=== PATIENT | male | born 1955 | race Caucasian/White ===

== ENCOUNTER 2021-04-25 14:51 | Outpatient (CLI) | payer BC ==
[2021-04-25 17:25] LABS: Hemoglobin 14.3 g/dL (13.5-17.5); Mean Corpuscular HGB CONC 32.5 g/dL (32.0-36.0); Mean Corpuscular Hemoglobin 29.7 pg (27.0-33.0); Mean Corpuscular Volume 91.5 fl (81.2-95.1); Mean Platelet Volume 9.5 fl (7.4-10.4); Platelet Count 265 10x3/uL (150-450); RBC Distribution Width 12.2 % (11.5-14.5); Red Blood Cell (RBC) Count 4.81 10x6/uL (4.32-5.72); White Blood Cell (WBC) Count 6.3 10x3/uL (3.5-10.5)
[2021-04-25 17:33] LABS: Anion Gap 13 mmol/L (10-20); BUN (Urea Nitrogen) 21 mg/dL (8.4-25.7); Calc. Creatinine Clearance 0 mL/min (70-130); Calcium 9.2 mg/dL (7.8-10.44); Carbon Dioxide 29 mmol/L (23-31); Chloride 102 mmol/L (98-107); Glucose 136 mg/dL (80-115); Potassium 3.8 mmol/L (3.5-5.1); Sodium 140 mmol/L (136-145)
[2021-04-26 12:12] LABS: SARS-CoV-2 PCR by NAA Not Detected (NotDetected)
== END 2021-04-25 14:52 | disposition home or self-care (01) ==
LOC: CSHLAB 14:51
PROVIDERS: ATTEND Otolaryngology Otolaryngic Allergy
DX: Z01.818 Encounter for other preprocedural examination (principal); Z20.822 Contact with and (suspected) exposure to COVID-19; D37.02 Neoplasm of uncertain behavior of tongue
CPT/HCPCS: 80048; 85027; 93005; 93010; U0003; U0005

== ENCOUNTER 2021-04-30 06:22 | Day surgery (SDC) | payer BC ==
[2021-04-26 12:18] VITALS: BMI 22.7
[2021-04-30] MEDS ORDERED: Lidocaine 1% MPF 2 ML VIAL ONE (08:12)
[2021-04-30] MEDS ORDERED: SUGAMMADEX SODIUM 200 MG/2 ML VIAL ONE (09:46)
[2021-04-30] MEDS ORDERED: EPINEPHrine 1 MG/ML AMP ONE (09:48)
[2021-04-30] MEDS ORDERED: Lidocaine 1% PF 5 ML VIAL ONE (09:53)
[2021-04-30] MEDS ORDERED: Dexamethasone 20 MG/5 ML VIAL ONE (09:53)
[2021-04-30] MEDS ORDERED: Rocuronium Bromide 10 MG/ML (10ML VIAL) ONE (09:53)
[2021-04-30] MEDS ORDERED: Midazolam HCl 2 mg/2 ml Vial ONE (09:53)
[2021-04-30] MEDS ORDERED: PROPOFOL 20 ML ONE (09:53)
[2021-04-30] MEDS ORDERED: Ondansetron PF 4 MG/2 ML Vial ONE (09:53)
[2021-04-30] MEDS ORDERED: Fentanyl 100 MCG/2 ML VIAL ONE ×2 (09:53→10:51)
[2021-04-30] MEDS ORDERED: CEFAZOLIN 1 GM VIAL ONE (09:55)
== END 2021-04-30 12:05 | disposition home or self-care (01) ==
LOC: CSHSDC 06:22
PROVIDERS: ATTEND Otolaryngology Otolaryngic Allergy
PROC: 0JJS3ZZ Inspection of Head and Neck Subcutaneous Tissue and Fascia, Percutaneous Approach (ICD-10-PCS; principal; 2021-04-30)
PROC: 0CBM8ZX Excision of Pharynx, Via Natural or Artificial Opening Endoscopic, Diagnostic (ICD-10-PCS; principal; 2021-04-30)
DX: C01 Malignant neoplasm of base of tongue (principal); R59.0 Localized enlarged lymph nodes; G89.29 Other chronic pain; M54.50 Low back pain, unspecified; G43.909 Migraine, unspecified, not intractable, without status migrainosus; Z79.899 Other long term (current) drug therapy; Z91.018 Allergy to other foods; Z87.891 Personal history of nicotine dependence
CPT/HCPCS: 88173; 88305; 88331; 88341; 88342; J0171; J0690; J1100; J2250; J2405; J2704; J3010

== ENCOUNTER 2021-05-21 12:12 | Outpatient (CLI) | payer BC ==
[2021-05-22 01:17] LABS: SARS-CoV-2 PCR by NAA Not Detected (NotDetected)
== END 2021-05-21 12:13 | disposition home or self-care (01) ==
LOC: CSHLAB 12:12
PROVIDERS: ATTEND Surgery
DX: Z20.822 Contact with and (suspected) exposure to COVID-19 (principal); C01 Malignant neoplasm of base of tongue
CPT/HCPCS: U0003; U0005

== ENCOUNTER 2021-07-24 09:00 | Outpatient (CLI) | payer BC | END 2021-07-24 09:01 | disposition home or self-care (01) | LOC: CSHWCC 09:00 | PROVIDERS: ATTEND Nurse Practitioner Family | DX: S11.80XD Unspecified open wound of other specified part of neck, subsequent encounter (principal) | CPT/HCPCS: 11042; 11045; 99203; G0463 ==

== ENCOUNTER 2023-02-17 12:45 | Outpatient (CLI) | payer BC | END 2023-02-17 12:46 | disposition home or self-care (01) | LOC: CSHCP 12:45 | PROVIDERS: ATTEND Radiology Radiation Oncology | DX: C01 Malignant neoplasm of base of tongue (principal); R94.2 Abnormal results of pulmonary function studies | CPT/HCPCS: 94010; 94726; 94729; 94760 ==